=== PATIENT | male | born 1955 | race Caucasian/White ===

== ENCOUNTER → 2024-04-05 | Outpatient (CLI) | payer OTHER, BC, SELFPAY ==
[2024-04-06 20:30] LABS: Prostate Specific Antigen 0.51 ng/mL (0-4.00)
== END | disposition home or self-care (01) ==
LOC: COPL 15:26
PROVIDERS: PCP Student in an Organized Health Care Education/Training Program; Referring Provider Surgery; Visit Provider Surgery
DX: N40.1 Benign prostatic hyperplasia with lower urinary tract symptoms (principal)
CPT/HCPCS: 36415; 84153